=== PATIENT | male | born 1985 | race Caucasian/White ===

== ENCOUNTER 2021-03-05 11:40 | Emergency (ER) | payer SELFPAY ==
[~2021-03-05] VITALS: Ht 175.3 cm; Wt 122.5 kg
[2021-03-05 11:46] VITALS: BP 112/62
--- NOTE | 2021-03-05 11:50 | NUR ---
PT BIBSELF STEPPED INTO A POT HOLE WHILE JOGGING THIS MORNING,C/O R HEEL PAIN. SKIN INTACT. A/OX4. TOLERATING R/A WELL WITH NO SOB
--- NOTE | 2021-03-05 12:05 | NUR ---
VIAL GAUGER AT PT'S BEDSIDE
--- NOTE | 2021-03-05 13:05 | NUR ---
Patient discharged to home in stable condition. Written and verbal after care instructions given. Patient verbalizes understanding of instruction.
== END 2021-03-05 13:05 | disposition home or self-care (01) ==
LOC: ER 11:44
DX: M25.571 Pain in right ankle and joints of right foot (principal); I10 Essential (primary) hypertension; Z90.49 Acquired absence of other specified parts of digestive tract; Z60.2 Problems related to living alone
CPT/HCPCS: 73630-TC; 73650-TC